=== PATIENT | female | born 1980 | race American Indian/Alaskan Native ===

== ENCOUNTER 2021-08-13 22:45 | Emergency (ER) | payer SELFPAY ==
[2021-08-14 01:48] VITALS: BP 105/71
[2021-08-14 02:10] LABS: Bilirubin,Urine NEG (Negative); Blood,Urine NEG (Negative); Color,Urine Yellow (Yellow); Urobilinogen,Urine < 2.0 mg/dL (<2.0); WBC,Urine < 1.0 /HPF (0.0-6.0)
[2021-08-14 02:12] LABS: HCG Qualitative,Urine Negative (Negative)
--- NOTE | 2021-08-14 04:38 | Emergency Department Report ---
ED Female HPI - General Chief complaint: Urogenital-Female Stated complaint: URINARY INCONTINENCE Time Seen by Provider: 08/14/21 04:36 Source: patient, EMS Mode of arrival: Ambulatory Limitations: No Limitations - History of Present Illness Initial comments: 41-year-old female who denies any significant past medical history presents to the ER today by EMS with complaints of urinary frequency, urgency and incontinence. Patient states that 2 days ago she started having symptoms of urgency. She states that when she gets the urge to go, sometimes she is unable to hold it and urinate on herself but also times when she do make it to the bathroom only small amount comes out or no urine comes out. She does have urinary frequency but she denies any hematuria or dysuria. She denies any abdominal pain, back pain, fever, chills, nausea, vomiting or any additional symptoms. She denies any bowel incontinence. She denies any saddle anesthesia or lower extremity weakness or paresthesias. She denies similar symptoms in the past. MD Complaint: other (urinary urgency, frequency, incontinence) -: days(s) (2) - Related Data Previous Rx's Medication Instructions Recorded Last Taken Type Phenazopyridine [Pyridium] 200 mg PO TID #9 tab 08/14/21 Unknown Rx Allergies Allergy/AdvReac Type Severity Reaction Status Date / Time No Known Allergies Allergy Verified 08/14/21 01:43 ED Review of Systems ROS: Stated complaint: URINARY INCONTINENCE Other details as noted in HPI Comment: All other systems reviewed and negative Constitutional: denies: chills, fever Eyes: denies: eye pain, eye discharge, vision change Respiratory: denies: cough, shortness of breath, SOB with exertion, SOB at rest, wheezing Cardiovascular: denies: chest pain, palpitations Gastrointestinal: denies: abdominal pain, nausea, vomiting, diarrhea, c onstipation, hematemesis, melena, hematochezia Genitourinary: urgency, frequency. denies: dysuria, hematuria, discharge, abnormal menses, dyspareunia Musculoskeletal: denies: back pain Skin: denies: rash, lesions, change in color, change in hair/nails, pruritus Neurological: denies: headache, weakness, numbness, paresthesias, confusion, abnormal gait, vertigo Psychiatric: denies: anxiety, depression, auditory hallucinations, visual hallucinations, homicidal thoughts, suicidal thoughts Hematological/Lymphatic: denies: easy bleeding, easy bruising, swollen glands ED Past Medical Hx - Past Medical History Previous Medical History?: No - Surgical History Past Surgical History?: Yes Additional Surgical History: Right arm Hardware - Social History Smoking Status: Never Smoker Substance Use Type: None - Medications Home Medications: Home Medications Medication Instructions Recorded Confirmed Last Taken Type Phenazopyridine [Pyridium] 200 mg PO TID #9 tab 08/14/21 Unknown Rx ED Physical Exam - General Limitations: No Limitations General appearance: alert, in no apparent distress - Head Head exam: Present: atraumatic, normocephalic, normal inspection - Eye Eye exam: Present: normal appearance, PERRL, EOMI Pupils: Present: normal accommodation - ENT ENT exam: Present: mucous membranes moist - Neck Neck exam: Present: normal inspection, full ROM. Absent: meningismus - Respiratory Respiratory exam: Present: normal lung sounds bilaterally. Absent: respiratory distress, wheezes, rales, rhonchi - Cardiovascular Cardiovascular Exam: Present: regular rate, normal rhythm, normal heart sounds - GI/Abdominal GI/Abdominal exam: Present: soft. Absent: distended, tenderness, guarding, rebound - Back Exam Back exam: Present: normal inspection, full ROM. Absent: tenderness, CVA tenderness (R), CVA tenderness (L) - Neurological Exam Neurological exam: Present: alert, oriented X3, CN II-XII intact, normal gait - Psychiatric Psychiatric exam: Present: normal affect, normal mood - Skin Skin exam: Present: intact ED Course Vital Signs 08/14/21 08/14/21 01:32 01:45 Temperature 98.2 F 98 F Pulse Rate 79 66 Respiratory 18 18 Rate Blood Pressure 109/79 105/71 O2 Sat by Pulse 100 98 Oximetry ED Medical Decision Making - Medical Decision Making 41-year-old female who denies any significant past medical history presents to [facility] ER today by EMS with complaints of urinary frequency, urgency and incontinence. Patient states that 2 days ago she started having symptoms of urgency. She states that when she gets the urge to go, sometimes she is unable to hold it and urinate on herself but also times when she do make it to the bathroom only small amount comes out or no urine comes out. She does have urinary frequency but she denies any hematuria or dysuria. She denies any abdominal pain, back pain, fever, chills, nausea, vomiting or any additional symptoms. She denies any bowel incontinence. She denies any saddle anesthesia or lower extremity weakness or paresthesias. She denies similar symptoms in the past. 0502: Urinalysis reviewed --patient has a small leukocytes no WBCs, no nitrites, and no bacteria and therefore I do not suspect this to be a UTI. hCG is negative. Patient is well-appearing, nontoxic and not in any acute distress. She has been observed ambulating and ER without any difficulty and a normal gait. She has no focal neurological deficits on exam. She denies any pain. She appears hydrated. Her vital signs are stable. I do not see an indication for any additional testing at this time. I do not suspect cord impingement syndrome, symptoms could be related to bladder spasm but at this time unclear. Critical care attestation.: If time is entered above; I have spent that time in minutes in the direct care of this critically ill patient, excluding procedure time. ED Disposition Clinical Impression: Bladder spasm, Urinary frequency Disposition: 01 HOME / SELF CARE / HOMELESS Is pt being admited?: No Does the pt Need Aspirin: No Condition: Stable Instructions: Urinary Frequency, Adult, Overactive Bladder, Adult Additional Instructions: Recommend that you take the Pyridium as prescribed to help with your symptoms. It will turn your urine orange-red. I do recommend follow-up with your primary care doctor and urologist for further evaluation. Return to the ER if your symptoms changes or worsens in any way. Prescriptions: Phenazopyridine [Pyridium] 200 mg PO TID #9 tab Referrals: HAKEEM WINTER MD [Staff Physician] - 3-5 Days MILAGRO WELDON MD [Staff Physician] - 3-5 Days Time of Disposition: 04:38
== END 2021-08-14 05:29 | disposition home or self-care (01) ==
LOC: ED 22:45
DX: N32.89 Other specified disorders of bladder (principal); R35.0 Frequency of micturition; Z79.899 Other long term (current) drug therapy
CPT/HCPCS: 81001; 81025; 99283